=== PATIENT | female | born 1970 | race Caucasian/White ===

== ENCOUNTER 2023-11-17 08:42 | Outpatient (CLI) | payer OTHER ==
--- NOTE | 2023-11-17 11:44 | XRAY Report ---
PROCEDURE: Lumbar Spine 2-3V INDICATIONS: SCIATICA, LEFT AND BACK PAIN TECHNIQUE: 3 view(s) of the lumbar spine were acquired. COMPARISON: None. FINDINGS: Bones: Vertebral body height and alignment is maintained. No suspicious bony lesions. Soft tissues: Overlying bowel gas pattern is normal. No suspicious soft tissue calcifications. IMPRESSION: Unremarkable lumbar spine radiographs Reviewed by: Igor Mendoza MD on 11/17/2023 10:43 AM [place]EL[place] Approved by: Igor Mendoza MD on 11/17/2023 10:43 AM [place]MAN[place] Station ID: [id number]
== END 2023-11-17 08:43 | disposition home or self-care (01) ==
LOC: LAB.N 08:42 → DI.N 08:43
PROVIDERS: ATTEND Family Medicine
DX: M54.42 Lumbago with sciatica, left side (principal)